=== PATIENT | male | born 1930 | race Caucasian/White ===

== ENCOUNTER → 2019-12-20 | Outpatient (CLI) | payer OTHER ==
[2019-12-20] VITALS (7 sets, daily range): BP systolic 140–157; BP diastolic 71–78
[~2019-12-20] MED LIST: ACETAMINOPHEN325 M1 PO; ALLOPURINOL 10100 M3 PO; ANTACID325 MG PO; ASPIRIN EC81 M1 PO; CARVEDILOL25 MG PO; CENTRUM SILVER1 EAC1; FISHOIL; GARLIC OIL1 EACH; KLOR-CON 10 ER10 MEQ PO; LASIX 40 MG TAB40 M1 PO; OMEPRAZOLE; ROCALTROL0.5 MCG PO; SIMVASTATIN20 MG PO; SLOW FE142 MG PO; VASOTEC; ZANTAC
[2019-12-20 10:24] LABS: HEMATOCRIT 29.4 % (42.0-52.0); HEMOGLOBIN 10.1 gm/dL (14.0-18.0); MCH 34.5 pg (26.0-34.0); MCHC 34.5 g/dL (28.0-37.0); MCV 100.1 fL (80.0-100.0); MPV 10.3 fl. (7.2-11.1); RBC 2.94 mil/uL (4.50-6.00); RDW-CV 15.1 % (10.5-14.5); WBC 9.5 thou/uL (4.0-11.0)
[2019-12-20 10:28] LABS: ANION GAP 8 mmol/L (7-16); BUN 31 mg/dL (7-18); CHLORIDE 106 mmol/L (98-107); CO2 24 mmol/L (21-32); CREATININE 1.8 mg/dL (0.6-1.3); GLUCOSE 92 mg/dL (70-99); POTASSIUM 4.6 mmol/L (3.5-5.1); SODIUM 138 mmol/L (136-145)
[2019-12-20 10:30] LABS: APTT 26.1 Seconds (25.0-31.3); INR 1.1; PROTIME 11.5 Seconds (9.20-11.50)
[2019-12-20 10:33] LABS: ALBUMIN 3.5 g/dL (3.4-5.0); ALKALINE PHOSPHATASE 57 U/L (46-116); CHOLESTEROL 97 mg/dL (<200); HDL CHOLESTEROL 39 mg/dL (>40); LDL CHOLESTEROL 45 mg/dL (<100); SGOT 27 U/L (15-37); SGPT 22 U/L (30-65); TC:HDL 2.5 Ratio (Not establshd); TOTAL BILIRUBIN 0.7 mg/dL (<0.1-1.0); TRIGLYCERIDE 69 mg/dL (<150); VLDL 14 mg/dL (<40)
[2019-12-20 10:34] LABS: SERUM ASSESSMENT Clear
--- NOTE | 2019-12-20 14:36 | EKG ---
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 All Around: : 1930 Requested By: Darren Nieves Order Number: [id number] MD: Darren Nieves Measurements Intervals [place] Rate: 63 P: 0 ID: 58 QRS: -80 QRSD: 139 T: 77 QT: 461 QTc: 472 Interpretive Statements Ventricular-paced rhythm No further analysis attempted due to paced rhythm No previous ECG available for comparison Electronically Signed On 12-20-2019 14:36:35 CDT by Darren Nieves [email or web address] <ELECTRONICALLY SIGNED> By: Darren Nieves MD, [facility] 12/20/19 1436 1031 1031 Darren Nieves MD, [facility] /EPI
--- NOTE | 2020-01-05 14:50 | CARD ---
[address] [address] CARDIAC CATH REPORT Name: IRVIN MAYBERRY Room: [facility].#: [id number] Admission: 12/20/19 Attend Phys: Darren Nieves MD, F Discharge: Date of : 34 Report #: [id number] THIS REPORT FOR: //name// cc: Asha Yeh Diane C. 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 Conscious Sedation Start time: 11:36 End Time: 13:04 Fentanyl 25 mcg Versed 5 mg ICD was noted to be at [facility]. It was recommended that the ICD Bi-V be exchanged for a Bi-V pacemaker and not replace with an ICD because of the patient's advanced age, lack of ICD discharges, improvement in LVEF, and history of dementia and poor activity status. Implanted Devices: BI-V pacemaker Generator Explanted Devices: ICD BI-V GENERATOR Procedure The patient underwent informed consent. We discussed the details of the procedure including the risks, which include, but not limited to bleeding, infection, vascular damage, cardiac perforation, and pneumothorax. He understood these risks and was willing to proceed. As such, he was brought to the EP/Cardiac Catheterization laboratory in a fasting and sedated state and prepped and draped in a The patient underwent conscious sedation, with no related complications. The patient was brought to the EP/Cardiac Catheterization laboratory and the left chest and shoulder were prepped [place] [address] CARDIAC CATH REPORT Name: IRVIN MAYBERRY Room: [facility] Eliazar#: [id number] Admission: 12/20/19 Attend Phys: Darren Nieves MD, F Discharge: Date of : 34 Report #: [id number] manner. The left subclavian region was infiltrated with 2% Lidocaine with Epinephrine subcutaneous anesthesia. A transverse incision was made in the left upper chest cavity. Capturing and sensing thresholds were verified. The ICD leads were capped. The atrial lead was capped Electrode Parameters Ventricular Threshold: 0.6 v @ 0.5 ms Ventricular Resistance: 374 ohm LV lead threshold was 3.2 v @ 0.5 ms. Resistance was 681 ohm. The patient's underlying rhythm was noted to be atrial fibrillation with no escape rhythm. Generator Change The generator change was then secured using 0 silk sutures. The subcutaneous pocket was irrigated with ancef antibiotic solution.The lead was attached to the appropriate receptacle on the new pulse generator and setscrews firmly tightened to insure adequate contact and stability. The lead and pulse generator were placed into the subcutaneous pocket. Sharp and sponge counts were confirmed to be correct. At this time the pocket was closed subcutaneously with a 0 Vicryl and the skin was closed with a 4.0 Vicryl. The operative site was dressed in sterile fashion with skin affix and the patient was transferred to the floor in stable condition. Complications The patient tolerated the procedure well and there were no complications associated with the procedure. Findings Specimens Removed: Yes medtronic ICD Bi-V generator Estimated Blood Loss: 5 cc Conclusion successful replacement of a medtronic bi-v ICD with a medtronic bi-v pacemaker. <ELECTRONICALLY SIGNED> By: Darren Nieves MD, [facility] 01/05/201449 49 1450Darudolph Nieves MD, FACC /INF
== END | disposition home or self-care (01) ==
LOC: M.CL 09:30
PROVIDERS: ATTEND Internal Medicine Cardiovascular Disease
DX: Z45.010 Encounter for checking and testing of cardiac pacemaker pulse generator [battery] (principal); I49.5 Sick sinus syndrome; I48.21 Permanent atrial fibrillation; I42.0 Dilated cardiomyopathy; I13.0 Hypertensive heart and chronic kidney disease with heart failure and stage 1 through stage 4 chronic kidney disease, or unspecified chronic kidney disease; N18.9 Chronic kidney disease, unspecified; I50.9 Heart failure, unspecified; E78.5 Hyperlipidemia, unspecified; M10.9 Gout, unspecified; Z98.890 Other specified postprocedural states; Z79.899 Other long term (current) drug therapy; Z87.891 Personal history of nicotine dependence; Z79.82 Long term (current) use of aspirin